=== PATIENT | female | born 1975 | race Caucasian/White ===

== ENCOUNTER 2021-12-29 14:32 | Emergency (ER) | payer OTHER ==
[~2021-12-29] VITALS: Ht 175.3 cm; Wt 127.0 kg
[2021-12-29] MEDS ORDERED: TENORMIN25 MG PO (14:40)
[2021-12-29] MEDS ORDERED: CYMBALTA60 MG PO (14:41)
[2021-12-29] MEDS ORDERED: CARAFATE1 GM PO (18:17)
[2021-12-29] MEDS ORDERED: PEPCID20 MG PO (18:17)
== END 2021-12-29 18:43 | disposition home or self-care (01) ==
LOC: ER 14:32
DX: K29.70 Gastritis, unspecified, without bleeding (principal); I10 Essential (primary) hypertension